=== PATIENT | male | born 1940 | race Caucasian/White ===

== ENCOUNTER → 2017-04-27 | Day surgery (SDC) | payer MEDICARE ==
[2017-04-23 14:52] LABS: BASOPHILS % 0.5 % (0.0-1.0); EOSINOPHILS # (AUTO) 0.3 (0.0-0.4); EOSINOPHILS % 5.4 % (0.0-6.0); HEMATOCRIT 41.1 % (38.2-49.6); HEMOGLOBIN 14.2 g/dL (14.0-18.0); MEAN CORPUSCULAR HEMOGLOBIN 33.7 pg (28-32); MEAN CORPUSCULAR HGB CONC 34.5 g/dL (31-35); MEAN CORPUSCULAR VOLUME 97.6 fL (81-99); MONOCYTES # (AUTO) 0.5 (0.2-0.8); MONOCYTES % 8.2 % (4.4-11.3); NEUTROPHILS # (AUTO) 3.9 (2.1-6.9); NEUTROPHILS % 68.4 % (38.7-80.0); PLATELET COUNT 187 x10e3/uL (140-360); RED BLOOD COUNT 4.21 x10e6/uL (4.3-5.7); RED CELL DISTRIBUTION WIDTH 12.8 % (11.7-14.4)
--- NOTE | 2017-04-23 14:55 | Diagnostic Imaging Report ---
PROCEDURE:CHEST 2 VIEWS TECHNIQUE:PA and lateral chest INDICATION:Preoperative chest x-ray for kidney stone surgery. COMPARISON:None. FINDINGS: Mild left hemidiaphragm elevation. Mild bilateral lower lobe interstitial scar (left greater than right). Lungs are otherwise clear. Normal heart size. Postoperative sequela of CABG with intact midline wires. Intact skeleton. Flowing anterior longitudinal ligament calcification suggesting skeletal hyperostosis. CONCLUSION: Postoperative sequela of CABG without acute abnormality. Dictated by: Leander Ibrahim M.D. on 04/23/2017 at 15:03 Electronically approved by: Leander Ibrahim M.D. on 04/23/2017 at 15:03
[2017-04-23 15:08] LABS: ANION GAP 14.1 mmol/L (8-16); BLOOD UREA NITROGEN 19 mg/dL (7-26); BUN/CREATININE RATIO 20 (6-25); CALCIUM 9.6 mg/dL (8.4-10.2); CARBON DIOXIDE 25 mmol/L (22-29); CHLORIDE 106 mmol/L (98-107); CREATININE, SERUM 0.93 mg/dL (0.72-1.25); EST GLOMERULAR FILTRATION RATE > 60 ML/MIN (60-); GLUCOSE 114 mg/dL (74-118); POTASSIUM 4.1 mmol/L (3.5-5.1); SODIUM 141 mmol/L (136-145)
[~2017-04-27] MED LIST: ALEVE220 MG PO; AMOXICILLIN250 MG PO; ARED PO; CEFTRIAXONE SOD 1 GM VIAL ONE; EPHEDRINE SULFATE INJ 50 MG/10 ML SYR ONE; FENTANYL CITRATE/PF 100MCG/2 ML INJ ONE; FLOMAX0.4 MG PO; GLIPIZIDE5 MG PO; LIDOCAINE HCL 2% LOCAL INJ 5 ML SDV VIAL INJ ONE; MIDAZOLAM HCL 2 MG/2 ML VIAL ONE; ONDANSETRON HCL INJ 2 MG/ML VIAL ONE; PROPOFOL IV EMULSION 10 MG/ML 20 ML VIAL ONE; VIT B12 PO; Z.0.ALLOPURINOL300 M PO; Z.0.FLOMAX0.4 MG PO; Z.2.METFORMIN HCL500 PO; [UNRECOGNIZED DRUG - OTHER] PO
--- NOTE | 2017-04-27 06:52 | Diagnostic Imaging Report ---
ABDOMEN-1VIEW (KUB) Clinical history: Preoperative kidney stone Technique: AP view abdomen Comparison: None Findings: Abdomen: Nonobstructive bowel gas pattern with moderate stool burden. Partially imaged sternotomy wires. Other: Moderate stool burden overlies the kidneys; in addition there are vascular calcifications which limit evaluation. Multiple nonobstructing stones are seen projecting over the kidneys bilaterally: Right: the largest 4 mm over the right lower pole, 2 to 3 mm over the right upper and interpolar region. Left: two 5 mm and one 4 mm over the left upper pole, about two measuring 4 mm over the interpolar region. Impression: Bilateral nephrolithiasis. Signed by: Dr Elizabeth Burns MD on 04/27/2017 6:48 AM
--- NOTE | 2017-04-27 12:31 | Operative Report ---
DATE OF PROCEDURE: April 27, 2017 PREOPERATIVE DIAGNOSIS: Left kidney stone. POSTOPERATIVE DIAGNOSIS: Left kidney stone. PROCEDURES 1. Staged shock wave lithotripsy. 2. Supervision of fluoroscopy. ANESTHESIA: General. ESTIMATED BLOOD LOSS: Minimal. COMPLICATIONS: None. INDICATIONS FOR PROCEDURE: Mr. Carranza is a very pleasant 77-year-old male with a history of left kidney stone. He has failed a trial of passage, and has been symptomatic. He and I had a long discussion about alternatives, risks and benefits, including doing nothing, shock wave lithotripsy, ureteroscopy, percutaneous surgery and open surgery. He voiced understanding of the options, alternatives, risks and benefits and elected to proceed. PROCEDURE IN DETAIL: After informed consent was obtained, the patient was taken to the operative suite, placed supine and underwent general anesthesia by the anesthesia service. The stone was then localized in the X, Y and Z planes. A total of 3000 shocks at a maximum power setting of 6 were delivered to the stone. The patient tolerated the procedure well and was transported to the recovery room in excellent condition. SUPERVISION OF FLUOROSCOPY: I was present throughout the entire procedure and I supervised the use of fluoroscopy as there was no radiologist present. Job#: [id number] YOBANY
== END | disposition home or self-care (01) ==
LOC: OR 07:02
PROVIDERS: ATTEND Urology
DX: N20.0 Calculus of kidney (principal); I25.810 Atherosclerosis of coronary artery bypass graft(s) without angina pectoris; E11.9 Type 2 diabetes mellitus without complications; M10.9 Gout, unspecified; G47.33 Obstructive sleep apnea (adult) (pediatric); Z01.810 Encounter for preprocedural cardiovascular examination; Z01.812 Encounter for preprocedural laboratory examination; Z01.818 Encounter for other preprocedural examination; Z95.1 Presence of aortocoronary bypass graft; Z85.46 Personal history of malignant neoplasm of prostate
CPT/HCPCS: 36415 ×2; 50590; 71020; 74000; 80048; 82948; 85025; 93005; J0696; J2001; J2250; J2405

== ENCOUNTER → 2017-09-24 | Outpatient (CLI) | payer MEDICARE ==
[~2017-09-24] MED LIST changes: -CEFTRIAXONE SOD 1 GM VIAL ONE; -EPHEDRINE SULFATE INJ 50 MG/10 ML SYR ONE; -FENTANYL CITRATE/PF 100MCG/2 ML INJ ONE; -LIDOCAINE HCL 2% LOCAL INJ 5 ML SDV VIAL INJ ONE; -MIDAZOLAM HCL 2 MG/2 ML VIAL ONE; -ONDANSETRON HCL INJ 2 MG/ML VIAL ONE; -PROPOFOL IV EMULSION 10 MG/ML 20 ML VIAL ONE
--- NOTE | 2017-09-24 10:01 | Diagnostic Imaging Report ---
PROCEDURE:X-RAY ABDOMEN - KUB COMPARISON:04/27/2017. INDICATIONS:FOLLOW UP STONES ROUTINE FINDINGS: No appreciable interval change in bilateral renal calculi ranging from 4 mm to 6 mm projecting over the left renal shadow and from 3 mm to 6 mm projecting over the right renal shadow. No additional calculi project over the expected ureteral courses. Atherosclerotic vascular calcifications. Bowel gas pattern is nonobstructive. Regional skeletal structures are intact. Multilevel degenerative disc changes of the partially visualized lumbar spine. CONCLUSION: grossly stable bilateral nephrolithiasis as above. Dictated by: John Paul Suero M.D. on 09/24/2017 at 10:04 Electronically approved by: John Paul Suero M.D. on 09/24/2017 at 10:04
== END ==
LOC: RAD 09:31
PROVIDERS: ATTEND Urology
DX: N20.0 Calculus of kidney (principal)
CPT/HCPCS: 74018

== ENCOUNTER → 2017-10-24 | Day surgery (SDC) | payer MEDICARE ==
[2017-10-19 11:38] LABS: BASOPHILS % 0.3 % (0.0-1.0); EOSINOPHILS # (AUTO) 0.3 (0.0-0.4); EOSINOPHILS % 4.5 % (0.0-6.0); HEMATOCRIT 40.3 % (38.2-49.6); HEMOGLOBIN 14.3 g/dL (14.0-18.0); LYMPHOCYTES % 14.1 % (18.0-39.1); MEAN CORPUSCULAR HGB CONC 35.5 g/dL (31-35); MEAN CORPUSCULAR VOLUME 95.7 fL (81-99); MONOCYTES # (AUTO) 0.6 (0.2-0.8); MONOCYTES % 8.2 % (4.4-11.3); NEUTROPHILS # (AUTO) 5.3 (2.1-6.9); NEUTROPHILS % 72.5 % (38.7-80.0); PLATELET COUNT 210 x10e3/uL (140-360); RED BLOOD COUNT 4.21 x10e6/uL (4.3-5.7); RED CELL DISTRIBUTION WIDTH 12.9 % (11.7-14.4)
[2017-10-19 11:54] LABS: ANION GAP 8.5 mmol/L (8-16); BLOOD UREA NITROGEN 20 mg/dL (7-26); BUN/CREATININE RATIO 18 (6-25); CALCIUM 9.7 mg/dL (8.4-10.2); CARBON DIOXIDE 30 mmol/L (22-29); CHLORIDE 104 mmol/L (98-107); CREATININE, SERUM 1.09 mg/dL (0.72-1.25); EST GLOMERULAR FILTRATION RATE > 60 ML/MIN (60-); GLUCOSE 179 mg/dL (74-118); POTASSIUM 4.5 mmol/L (3.5-5.1); SODIUM 138 mmol/L (136-145)
[~2017-10-24] MED LIST changes: +ASPIR 8181 MG PO; +CEFTRIAXONE SOD 1 GM VIAL ONE; +DEXAMETHASONE SOD PHOS INJ 4 MG/ML VIAL ONE; +EPHEDRINE SULFATE INJ 50 MG/10 ML SYR ONE; +FENTANYL CITRATE/PF 100MCG/2 ML INJ ONE; +LIDOCAINE HCL 2% LOCAL INJ 5 ML SDV VIAL INJ ONE; +ONDANSETRON HCL INJ 2 MG/ML VIAL ONE; +PROPOFOL IV EMULSION 10 MG/ML 20 ML VIAL ONE; +SEVOFLURANE INHAL SOLN 250 ML PEN BTL ONE
--- OUTSIDE RECORDS SUMMARY | 2017-10-24 05:11 | XMS REPORT ---
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 Allergies, Adverse Reactions, Alerts This patient has no known allergies or adverse reactions. Medications This patient has no known medications. Results Test Description Test Time Test Comments Text Results Atomic Results Result Comments ABDOMEN-1VIEW (KUB) [place] [address] Patient Name: GOVIND WATTS MR #: [id number] : 1940 Age/Sex: 77/M Req #: [id number] [facility] Physician: Ordered by: TONEY TURNER MD Report #: [id number] Location: [facility] Room/Bed: Procedure: [id number] DX/ABDOMEN-1VIEW (KUB) Exam Date: 09/24/17 Exam Time: 0945 REPORT STATUS: Signed PROCEDURE: X-RAY ABDOMEN - KUB COMPARISON: 04/27/2017. INDICATIONS: FOLLOW UP STONES ROUTINE FINDINGS: No appreciable interval change in bilateral renal calculi ranging from 4 mm to 6 mm projecting over the left renal shadow and from 3 mm to 6 mm projecting over the right renal shadow. No additional calculi project over the expected ureteral courses. Atherosclerotic vascular calcifications. Bowel gas pattern is nonobstructive. Regional skeletal structures are intact. Multilevel degenerative disc changes of the partially visualized lumbar spine. CONCLUSION: grossly stable bilateral nephrolithiasis as above. Dictated by: Govind Up M.D. on 09/24/2017 at 10:04 Electronically approved by: Govind Up M.D. on 09/24/2017 at 10:04 Dictated By : GOVIND UP MD 1004 Transcribed By: GREGG on 09/24/17 1004 COPY TO: TONEY TURNER MD ABDOMEN-1VIEW (KUB) [place] [address] Patient Name: GOVIND WATTS MR #: [id number] : 1940 Age/Sex: 77/M Req #: [id number] Adm Physician: Ordered by: TONEY TURNER MD Report #: [id number] Location: OR Room/Bed: Procedure: [id number] DX/ABDOMEN-1VIEW (KUB) Exam Date: 04/27/17 Exam Time: 0615 REPORT STATUS: Signed ABDOMEN-1VIEW (KUB) Clinical history: Preoperative kidney stone Technique: AP view abdomen Comparison: None Findings: Abdomen: Nonobstructive bowel gas pattern with moderate stool burden. Partially imaged sternotomy wires. Other: Moderate stool burden overlies the kidneys; in addition there are vascular calcifications which limit evaluation. Multiple nonobstructing stones are seen projecting over the kidneys bilaterally: Right: the largest 4 mm over the right lower pole, 2 to 3 mm over the right upper and interpolar region. Left: two 5 mm and one 4 mm over the left upper pole, about two measuring 4 mm over the interpolar region. Impression: Bilateral nephrolithiasis. Signed by: Dr Ashutosh Burns MD on 04/27/2017 6:48 AM Dictated By: ASHUTOSH BURNS MD Transcribed By: JAX on 04/27/1748 COPY TO: TONEY TURNER MD CHEST 2 VIEWS [place] [address] Patient Name: GOVIND WATTS MR #: [id number] : 1940 Age/Sex: 77/M Req # : [id number] Adm Physician: Ordered by: TONEY TURNER MD Report #: [id number] Location: OR Room/Bed: Procedure: [id number] DX/CHEST 2 VIEWS Exam Date: 04/23/17 Exam Time: 1430 REPORT STATUS: Signed PROCEDURE: CHEST 2 VIEWS TECHNIQUE: PA and lateral chest INDICATION: Preoperative chest x-ray for kidney stone surgery. COMPARISON: None. FINDINGS: Mild left hemidiaphragm elevation. Mild bilateral lower lobe interstitial scar (left greater than right). Lungs are otherwise clear. Normal heart size. Postoperative sequela of CABG with intact midline wires. Intact skeleton. Flowing anterior longitudinal ligament calcification suggesting skeletal hyperostosis. CONCLUSION: Postoperative sequela of CABG without acute abnormality. Dictated by: Paz Ibrahim M.D. on 04/23/2017 at 15:03 Electronically approved by: Paz Ibrahim M.D. on 04/23/2017 at 15:03 Dictated By: PAZ IBRAHIM MD 1503 Transcribed By: GREGG on 04/23/17 1503 COPY TO: TONEY TURNER MD ABDOMEN-1VIEW (KUB) [facility] [address] [place] [address] Patient Name: GOVIND WATTS MR #: [id number] : 1940 Age/Sex: 76/M Req #: [id number] Adm Physician: Ordered by: TONEY TURNER MD Report #: [id number] Location: [facility] Room/Bed: Procedure: [id number] DX/ABDOMEN-1VIEW (KUB) Exam Date: 03/12/17 Exam Time: 1020 REPORT STATUS: Signed PROCEDURE: X-RAY ABDOMEN - KUB COMPARISON: Abdomen one view 07/31/2016. INDICATIONS : CALCULUS OF THE KIDNEY FINDINGS: There is a non-obstructed bowel- gas pattern. Bilateral nephrolithiasis. Largest calculus in the right kidney project over the inferior pole and measures 3.5 mm. The largest calculus in the left kidney projects over the superior pole and measures 5.6 mm. There are no calcifications projected over the expected course of the ureters or bladder. Degenerative changes of the lumbar spine. There are no acute osseous abnormalities. The lung bases are clear. CONCLUSION: Bilateral nephrolithiasis. Dictated by: Mel Pack M.D. on 2016 at 13:18 Electronically approved by: Mel Pack M.D. on 2016 at 13:18 Dictated By: MEL PACK MD Transcribed By: GREGG on 03/12/171317 COPY TO: TONEY TURNER MD
--- NOTE | 2017-10-24 07:21 | Diagnostic Imaging Report ---
PROCEDURE:ABDOMEN-1VIEW (KUB) TECHNIQUE:Supine AP abdomen totaling 2 radiographs INDICATION:Preoperative x-ray for ESWL COMPARISON:Patients [facility], DX, ABDOMEN-1VIEW (KUB), 09/24/2017, 9:46. FINDINGS: 4 calcifications of the right kidney, one at the midsegment and 3 at the inferior pole. These measure between 0.3 and 0.4 cm in diameter. At least 7 calcifications over the left kidney measuring between 2 mm and 0.6 cm. Normal bowel gas pattern with moderate stool volume. No evidence of organomegaly or ascites. CONCLUSION: Bilateral nephrolithiasis measuring between 0.2 and 0.6 cm in diameter. Dictated by: Leander Ibrahim M.D. on 10/24/2017 at 7:24 Electronically approved by: Leander Ibrahim M.D. on 10/24/2017 at 7:24
--- NOTE | 2017-10-24 09:57 | Operative Report ---
DATE OF PROCEDURE: October 24, 2017 PREOPERATIVE DIAGNOSIS: Right kidney stones. POSTOPERATIVE DIAGNOSIS: Right kidney stones. PROCEDURE: Staged shockwave lithotripsy, right side. ANESTHESIA: General. ESTIMATED BLOOD LOSS: Minimal. COMPLICATIONS: None. INDICATIONS: Mr. Carranza is a very pleasant 77-year-old male who has had recurrent symptomatic kidney stones, now present on his right side, 6 x 6 mm. He and I had a long discussion regarding the alternatives, risks and benefits including doing nothing, shockwave lithotripsy, ureteroscopy, percutaneous surgery, open surgery; and shockwave lithotripsy has worked in the past. He elected to proceed with this therapy. PROCEDURE IN DETAIL: After informed consent was obtained, the time out was taken, side was confirmed, the patient had received his prophylactic antibiotics. He was placed supine on the lithotripsy table. The stone was localized in the X, Y, and Z planes. A total of 3000 shocks at a maximum power setting of 6 delivered to stone. Good fragmentation seen. The patient tolerated the procedure well and was transported to the recovery room in excellent condition. No untoward effects noted. Job#: [id number]
== END | disposition home or self-care (01) ==
LOC: OR 05:08
PROVIDERS: ATTEND Urology
DX: N20.0 Calculus of kidney (principal); G20 Parkinson's disease; G47.33 Obstructive sleep apnea (adult) (pediatric); I25.810 Atherosclerosis of coronary artery bypass graft(s) without angina pectoris; E11.9 Type 2 diabetes mellitus without complications; M10.9 Gout, unspecified; K44.9 Diaphragmatic hernia without obstruction or gangrene; Z01.810 Encounter for preprocedural cardiovascular examination; Z01.812 Encounter for preprocedural laboratory examination; Z79.82 Long term (current) use of aspirin; Z79.84 Long term (current) use of oral hypoglycemic drugs; Z95.1 Presence of aortocoronary bypass graft
CPT/HCPCS: 36415 ×2; 50590; 74018; 80048; 82948; 85025; 93005; J0696; J1100; J2001; J2405

== ENCOUNTER → 2017-12-10 | Outpatient (CLI) | payer MEDICARE ==
[~2017-12-10] MED LIST changes: -CEFTRIAXONE SOD 1 GM VIAL ONE; -DEXAMETHASONE SOD PHOS INJ 4 MG/ML VIAL ONE; -EPHEDRINE SULFATE INJ 50 MG/10 ML SYR ONE; -FENTANYL CITRATE/PF 100MCG/2 ML INJ ONE; -LIDOCAINE HCL 2% LOCAL INJ 5 ML SDV VIAL INJ ONE; -ONDANSETRON HCL INJ 2 MG/ML VIAL ONE; -PROPOFOL IV EMULSION 10 MG/ML 20 ML VIAL ONE; -SEVOFLURANE INHAL SOLN 250 ML PEN BTL ONE
--- NOTE | 2017-12-10 17:12 | Diagnostic Imaging Report ---
PROCEDURE:X-RAY ABDOMEN - KUB COMPARISON:KUB dated 10/24/17 INDICATIONS:RENAL CALCULI FOLLOW UP FINDINGS: There is a non-obstructed bowel-gas pattern. Multiple calcifications overlying left renal shadow, measuring up to 6 mm. Only a 4 mm calcification visualized overlying the right renal shadow. There are no acute osseous abnormalities. Degenerative changes of the thoracic spine. CONCLUSION: Multiple subcentimeter left renal calculi, measuring up to 6 mm. 4 mm right renal calculus. Dictated by: Vince Petty M.D. on 12/10/2017 at 17:18 Electronically approved by: Vince Petty M.D. on 12/10/2017 at 17:18
== END ==
LOC: RAD 16:23
PROVIDERS: ATTEND Urology
DX: N20.0 Calculus of kidney (principal)
CPT/HCPCS: 74018

== ENCOUNTER → 2018-01-28 | Outpatient (CLI) | payer MEDICARE ==
--- NOTE | 2018-01-28 15:05 | Diagnostic Imaging Report ---
EXAMINATION: Abdominal ultrasound. CLINICAL INDICATION: Abdominal pain, bloating COMPARISON: None DISCUSSION: Transverse and longitudinal images of the upper abdomen were obtained. The liver is increased in size measuring 17.4 centimeters in length in the right midclavicular line and shows normal echogenicity. No focal masses are seen in the liver. There is no intrahepatic biliary dilatation. The common bile duct measures 0.5 cm. The main portal vein is normal in caliber and measures 1 mm with normal hepatopetal flow. Gallbladder wall thickness is normal measuring 0.3 cm. Echogenic calculus at the neck. The visualized portions of the pancreatic body are unremarkable. The spleen is normal in echogenicity and size measuring 8.8 centimeters in length. The right kidney measures 11.8 centimeters in length and the left kidney measures 11.8 centimeters. There is normal renal cortical echogenicity and no hydronephrosis, solid mass. 2.5 cm cyst lateral aspect of right kidney. 0.7 cm echogenic focus with shadowing right kidney and 1 cm echogenic focus with shadowing left kidney. The visualized portions of the great vessels are normal. No free fluid is seen. IMPRESSION: Mild hepatomegaly. Gallstone. No cholecystitis. Bilateral hyperechoic foci, likely nonobstructing renal calculi. Signed by: Dr. Iain Henderson M.D. on 01/28/2018 3:01 PM
== END ==
LOC: US 13:32
PROVIDERS: ATTEND Internal Medicine
DX: R14.0 Abdominal distension (gaseous) (principal)
CPT/HCPCS: 76700

== ENCOUNTER → 2018-02-27 | Outpatient (CLI) | payer MEDICARE ==
--- NOTE | 2018-02-27 16:56 | Diagnostic Imaging Report ---
Exam: Abdominal film Clinical History: Renal calculi Comparison: 10/24/2017 DISCUSSION: Grossly unchanged scattered calcifications projecting over the renal shadows, right greater than left. The largest left renal calculus measures approximately 6 mm; the largest right renal calculus measures approximately 5 mm. No calcifications project over the expected ureteral courses. Atherosclerotic vascular calcifications are noted. Bowel gas pattern is nonobstructive. Regional skeletal structures are intact. Multilevel degenerative disc changes of the thoracic spine. IMPRESSION: Grossly unchanged bilateral renal calculi relative to 10/24/2017. Signed by: Dr. John Paul Suero M.D. on 02/27/2018 4:53 PM
== END ==
LOC: RAD 16:19
PROVIDERS: ATTEND Urology
DX: N20.0 Calculus of kidney (principal)
CPT/HCPCS: 74018

== ENCOUNTER → 2018-06-25 | Outpatient (CLI) | payer MEDICARE ==
--- NOTE | 2018-06-25 11:54 | Diagnostic Imaging Report ---
Exam: Abdominal film Clinical History: Renal stones Comparison: 02/27/2018 DISCUSSION: Grossly unchanged bilateral renal calculi measuring up to 6 mm bilaterally. No calcifications project over the expected ureteral courses. Atherosclerotic vascular calcifications in the pelvis are again noted. Bowel gas pattern is nonobstructive. Regional skeletal structures are intact with multilevel degenerative disc changes of the lumbar spine. IMPRESSION: Grossly unchanged bilateral renal calculi relative to 02/27/2018. Signed by: Dr. John Paul Suero M.D. on 06/25/2018 11:51 AM
== END ==
LOC: RAD 10:38
PROVIDERS: ATTEND Urology
DX: N20.0 Calculus of kidney (principal)
CPT/HCPCS: 74018

== ENCOUNTER → 2018-09-23 | Outpatient (CLI) | payer MEDICARE ==
--- NOTE | 2018-09-23 10:38 | Diagnostic Imaging Report ---
Exam: Abdominal film Clinical History: Renal calculi Comparison: 06/25/2018 DISCUSSION: As before, multiple calcifications project over both the right and left renal shadows, measuring up to 6 mm. Stone burden is grossly unchanged when accounting for differences in projection and overlying bowel contents. No suspicious calcifications project over the expected ureteral courses. Atherosclerotic vascular calcifications project over the pelvis. Bowel gas pattern is nonobstructive. Multilevel degenerative disc changes of the lumbar spine. IMPRESSION: Grossly unchanged bilateral renal stone burden relative to 06/25/2018. Signed by: Dr. John Paul Suero M.D. on 09/23/2018 10:35 AM
== END ==
LOC: RAD 09:52
PROVIDERS: ATTEND Urology
DX: N20.0 Calculus of kidney (principal)
CPT/HCPCS: 74018

== ENCOUNTER → 2018-11-18 | Outpatient (CLI) | payer MEDICARE ==
--- NOTE | 2018-11-18 11:57 | Diagnostic Imaging Report ---
Exam: KUB - 2 views Clinical History: Renal calculi Comparison: Multiple prior KUB studies, most recently 09/23/2018 Findings: Again seen are 4 calcific densities projecting over the mid to upper left kidney, the largest of which measures up to 6 mm. These appear slightly increased in size on for differences in technique compared to the prior study of 09/23/2018. Nonobstructive bowel gas pattern. Impression: Multiple left renal calculi as above, likely slightly increased in size compared to prior studies. Signed by: Lore Porras MD on 11/18/2018 11:54 AM
== END ==
LOC: RAD 10:58
PROVIDERS: ATTEND Urology
DX: N20.0 Calculus of kidney (principal)
CPT/HCPCS: 74018

== ENCOUNTER → 2019-09-23 | Outpatient (CLI) | payer MEDICARE ==
--- NOTE | 2019-09-23 11:49 | Diagnostic Imaging Report ---
EXAM: ABDOMEN-1VIEW (KUB) DATE: 09/23/2019 10:43 AM INDICATION: Calculus of kidney COMPARISON: 11/18/2018 FINDINGS: Bowel gas pattern appears nonobstructive. Bowel gas partially obscures renal shadows limiting evaluation. Multiple (at least 4) stable appearing subcentimeter calcifications are again identified projecting over the left renal shadow measuring up to 6 mm. Possible single punctate calcification identified projecting over the right renal shadow. Stable degenerative changes noted of the lumbar spine. No acute osseous abnormality identified. IMPRESSION: Grossly unchanged renal stone burden as detailed above. Signed by: Dr. Francisco Moreno MD on 09/23/2019 11:45 AM
== END ==
LOC: RAD 10:38
PROVIDERS: ATTEND Urology
DX: N20.0 Calculus of kidney (principal)
CPT/HCPCS: 74018

== ENCOUNTER → 2020-04-29 | Outpatient (CLI) | payer MEDICARE | LOC: RAD 11:30 | PROVIDERS: ATTEND Urology | DX: N20.0 Calculus of kidney (principal) | CPT/HCPCS: 74018 ==

== ENCOUNTER → 2020-08-02 | Outpatient (CLI) | payer MEDICARE, OTHER ==
[~2020-08-02] MED LIST changes: +COVID-19 VACC, MRNA(MODERNA)/PF 100 MCG/0.5 ML VIAL IM ONE
== END | disposition home or self-care (01) ==
LOC: VACCPMC 17:13
DX: Z23 Encounter for immunization (principal); Z20.822 Contact with and (suspected) exposure to COVID-19
CPT/HCPCS: 91301

== ENCOUNTER → 2020-08-30 | Outpatient (CLI) | payer MEDICARE, OTHER | END | disposition home or self-care (01) | LOC: VACCPMC 09:00 | DX: Z23 Encounter for immunization (principal); Z20.822 Contact with and (suspected) exposure to COVID-19 | CPT/HCPCS: 91301 ==